=== PATIENT | female | born 1975 ===

== ENCOUNTER 2016-09-09 13:47 | Emergency (ER) | payer SELFPAY ==
--- NOTE | 2016-09-09 14:26 | Emergency Department Report ---
Chief Complaint: Vaginal Bleeding Stated Complaint: HEAVY BLEEDING Time Seen by Provider: 09/09/16 14:19 - HPI History of Present Illness: 40-year-old female presents today with vaginal bleeding 17 days. Positive for history of fibroids. Positive for nausea, vomiting and minimal abdominal pain. Denies vaginal discharge, urinary symptoms, fever, chills, chest pain, shortness of breath. - ROS Review of Systems: Per HPI - Exam Vital Signs: Vital Signs 09/09/16 14:10 Temperature 97.8 F Pulse Rate 98 H Respiratory 18 Rate Blood Pressure 127/77 O2 Sat by Pulse 97 Oximetry Physical Exam: General: 40-year-old female in no acute distress. Well-developed, well- nourished. CV: Regular rate and rhythm. Lungs: Clear to auscultation bilaterally. Abdomen: Minimal tenderness to palpation over her left lower quadrant. No guarding or rebound tenderness. Normal bowel sounds. MSE screening note: Focused history and physical exam performed. Due to findings the following was ordered: ED Disposition for MSE Condition: Stable
[2016-09-09 15:31] LABS: Anion Gap 18 mmol/L; BUN/Creatinine Ratio 15.71; Blood Urea Nitrogen 11 mg/dL (7-17); Calcium 8.9 mg/dL (8.4-10.2); Carbon Dioxide 25 mmol/L (22-30); Chloride 99.6 mmol/L (98-107); Glucose 100 mg/dL (65-100); Potassium 3.9 mmol/L (3.6-5.0); Sodium 139 mmol/L (137-145)
[2016-09-09 15:39] LABS: Basophils % (Auto) 0.5 % (0.0-1.8); Eosinophils % (Auto) 5.3 % (0.0-4.3); Hematocrit 34.8 % (30.3-42.9); Hemoglobin 11.1 gm/dl (10.1-14.3); Mean Corpuscular HGB Conc 32 % (30-34); Mean Corpuscular Volume 79 fl (79-97); Platelet Count 242 K/mm3 (140-440); Red Blood Count 4.43 M/mm3 (3.65-5.03); Red Cell Distribution Width 16.4 % (13.2-15.2); White Blood Count 7.4 K/mm3 (4.5-11.0)
[2016-09-09 15:40] LABS: Bilirubin,Urine NEG (Negative); Blood,Urine LG (Negative); Ketones,Urine NEG (Negative); Leukocyte Esterase,Urine NEG (Negative); Nitrite,Urine NEG (Negative); Protein,Urine <15 mg/dL mg/dL (Negative); WBC,Urine < 1.0 /HPF (0.0-6.0)
[2016-09-09 15:41] LABS: RBC,Urine > 182.0 /HPF (0.0-6.0)
[2016-09-09 15:48] LABS: INR 1.07 (0.87-1.13)
[2016-09-09 15:49] LABS: Partial Thromboplastin Time 25.8 Sec. (24.2-36.6)
[2016-09-09 15:51] LABS: Mean Corpuscular Hemoglobin 25 pg (28-32)
--- NOTE | 2016-09-10 01:48 | Emergency Department Report ---
[id number] HEAVY BLEEDING Time Seen by Provider: 09/09/16 14:19 Source: patient, RN notes reviewed Mode of arrival: Ambulatory Limitations: No Limitations - History of Present Illness Initial comments: This is a 40-year-old female, previously unknown to me. 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 She reports a history of depression, fibroids. She reports currently having a "[place] device." Patient presents to the ER complaining of vaginal bleeding since August 24. She reports using a few pads per day. She has not passed out. She also complains of crampy pelvic pain. She denies irritative and obstructive urinary symptoms. No chest pain or shortness of breath. No lethargy or irritability. Bleeding has been constant since July. It has no exacerbating or relieving factors. MD Complaint: vaginal bleeding, pelvic pain -: Gradual, week(s) Location: suprapubic Severity: mild Quality: cramping Consistency: intermittent Improves with: none Worsens with: none Are you Now?: No Associated Symptoms: vaginal bleeding, abdominal pain. denies: vaginal discharge, fever/chills, headaches, loss of appetite, dysuria, hematuria, shortness of breath, syncope, weakness - Related Data Sexually active: Yes Previous Rx's Medication Instructions Recorded Last Taken Type Ibuprofen [Motrin] 600 mg PO Q8H PRN #30 tablet 09/10/16 Unknown Rx Ondansetron [Zofran Odt] 4 mg PO QID PRN #20 tab.rapdis 09/10/16 Unknown Rx Allergies Allergy/AdvReac Type Severity Reaction Status Date / Time No Known Allergies Allergy Unverified 09/09/16 14:13 ED Review of Systems ROS: Stated complaint: HEAVY BLEEDING Other details as noted in HPI Constitutional: denies: fever Eyes: denies: vision change ENT: denies: epistaxis Respiratory: denies: cough Cardiovascular: denies: chest pain Gastrointestinal: as per HPI Genitourinary: abnormal menses Musculoskeletal: as per HPI Skin: as per HPI. denies: lesions Neurological: denies: headache ED Past Medical Hx - Past Medical History Hx Hypertension: Yes Hx Psychiatric Treatment: Yes (depression) Additional medical history: fibroids - Surgical History Additional Surgical History: ,tubal - Social History Smoking Status: Never Smoker Substance Use Type: None - Medications Home Medications: Home Medications Medication Instructions Recorded Confirmed Last Taken Type Ibuprofen [Motrin] 600 mg PO Q8H PRN #30 tablet 09/10/16 Unknown Rx Ondansetron [Zofran Odt] 4 mg PO QID PRN #20 tab.rapdis 09/10/16 Unknown Rx ED Physical Exam - General Limitations: No Limitations General appearance: alert, in no apparent distress - Head Head exam: Present: atraumatic, normocephalic - Eye Eye exam: Present: normal appearance, EOMI. Absent: nystagmus - ENT ENT exam: Present: normal exam, normal orophraynx, mucous membranes moist. Absent: normal external ear exam - Neck Neck exam: Present: normal inspection, full ROM. Absent: tenderness, meningismus - Respiratory Respiratory exam: Present: normal lung sounds bilaterally. Absent: respiratory distress, wheezes, rales, rhonchi, stridor, chest wall tenderness - Cardiovascular Cardiovascular Exam: Present: regular rate, normal rhythm, normal heart sounds. Absent: bradycardia, tachycardia, irregular rhythm, systolic murmur, diastolic murmur, rubs, gallop - GI/Abdominal GI/Abdominal exam: Present: soft, normal bowel sounds. Absent: distended, tenderness, guarding, rebound, rigid, pulsatile mass - External exam: Present: normal external exam Speculum exam: Present: vaginal bleeding Bi-manual exam: Present: normal bi-manual exam, other (escorted by Hilaria). Absent: cervical motion tendernes, adnexal tenderness (escorted by Hilaria Brambila during exam), adnexal mass - Extremities Exam Extremities exam: Present: normal inspection, full ROM, normal capillary refill. Absent: tenderness, pedal edema, joint swelling, calf tenderness - Back Exam Back exam: Present: normal inspection, full ROM. Absent: tenderness, CVA tenderness (R), CVA tenderness (L), muscle spasm, paraspinal tenderness, vertebral tenderness, rash noted - Neurological Exam Neurological exam: Present: alert, oriented X3, normal gait, other (Extraocular movements intact. Tongue midline. No facial droop. Facial sensation intact to light touch in the V1, V2, V3 distribution bilaterally. 5 and 5 strength in 4 extremities.. Sensation is intact to light touch in 4 extremities.). Absent : motor sensory deficit - Psychiatric Psychiatric exam: Present: anxious - Skin Skin exam: Present: warm, dry, intact, normal color. Absent: rash ED Course Vital Signs 09/09/16 09/10/16 09/10/16 14:10 02:01 02:08 Temperature 97.8 F 97.9 F Pulse Rate 98 H 83 Respiratory 18 20 20 Rate Blood Pressure 127/77 Blood Pressure 131/81 [Right] O2 Sat by Pulse 97 99 99 Oximetry - Reevaluation(s) Reevaluation #1: 09/10/16 01:58 Differential diagnosis: Dysfunctional uterine bleeding, fibroid bleeding, anemia , Assessment and plan: 40-year-old female with subacute vaginal bleeding. She is not , she is afebrile with reassuring vital signs, she is not anemic. Her gynecologic exam is unremarkable with the exception of bleeding. She has an outpatient sports broadcasting internship that she can follow-up with. Her belly is soft with no rebound or guarding. She is clinically well-appearing. I see no objective indication for advanced imaging at this time, especially given her benign abdominal examination and benign gynecologic examination. She is instructed as to the importance of close outpatient [employer] follow-up. Return precautions are reviewed. ED Medical Decision Making - Lab Data Result diagrams: 09/09/16 14:55 09/09/16 14:55 Vital Signs 09/09/16 14:10 Temperature 97.8 F Pulse Rate 98 H Respiratory 18 Rate Blood Pressure 127/77 O2 Sat by Pulse 97 Oximetry Lab Results 09/09/16 09/09/16 09/09/16 Range/Units 14:55 14:55 14:55 WBC 7.4 (4.5-11.0) K/mm3 RBC 4.43 (3.65-5.03) M/mm3 Hgb 11.1 (10.1-14.3) gm/dl Hct 34.8 (30.3-42.9) % MCV 79 (79-97) fl MCH 25 L (28-32) pg MCHC 32 (30-34) % RDW 16.4 H (13.2-15.2) % Plt Count 242 (140-440) K/mm3 Lymph % (Auto) 49.9 H (13.4-35.0) % [place] % (Auto) 9.2 H (0.0-7.3) % Eos % (Auto) 5.3 H (0.0-4.3) % Baso % (Auto) 0.5 (0.0-1.8) % Lymph # 3.7 (1.2-5.4) K/mm3 [place] # 0.7 (0.0-0.8) K/mm3 Eos # 0.4 (0.0-0.4) K/mm3 Baso # 0.0 (0.0-0.1) K/mm3 Seg Neutrophils % 35.1 L (40.0-70.0) % Seg Neutrophils # 2.6 (1.8-7.7) K/mm3 PT 13.8 (12.2-14.9) Sec. INR 1.07 (0.87-1.13) APTT 25.8 (24.2-36.6) Sec. Sodium 139 (137-145) mmol/L Potassium 3.9 (3.6-5.0) mmol/L Chloride 99.6 (98-107) mmol/L Carbon Dioxide 25 (22-30) mmol/L Anion Gap 18 mmol/L BUN 11 (7-17) mg/dL Creatinine 0.7 (0.7-1.2) mg/dL Estimated GFR > 60 ml/min BUN/Creatinine Ratio 15.71 % Glucose 100 (65-100) mg/dL Calcium 8.9 (8.4-10.2) mg/dL Urine Color (Yellow) Urine Turbidity (Clear) Urine pH (5.0-7.0) Ur Specific [place] (1.003-1.030) Urine Protein (Negative) mg/dL Urine Glucose (UA) (Negative) mg/dL Urine Ketones (Negative) mg/dL Urine Blood (Negative) Urine Nitrite (Negative) Urine Bilirubin (Negative) Urine Urobilinogen (<2.0) mg/dL Ur Leukocyte Esterase (Negative) Urine WBC (Auto) (0.0-6.0) /HPF Urine RBC (Auto) (0.0-6.0) /HPF U Epithel Cells (Auto) (0-13.0) /HPF Urine HCG, Qual (Negative) 09/09/16 Range/Units 15:12 WBC (4.5-11.0) K/mm3 RBC (3.65-5.03) M/mm3 Hgb (10.1-14.3) gm/dl Hct (30.3-42.9) % MCV (79-97) fl MCH (28-32) pg MCHC (30-34) % RDW (13.2-15.2) % Plt Count (140-440) K/mm3 Lymph % (Auto) (13.4-35.0) % [place] % (Auto) (0.0-7.3) % Eos % (Auto) (0.0-4.3) % Baso % (Auto) (0.0-1.8) % Lymph # (1.2-5.4) K/mm3 [place] # (0.0-0.8) K/mm3 Eos # (0.0-0.4) K/mm3 Baso # (0.0-0.1) K/mm3 Seg Neutrophils % (40.0-70.0) % Seg Neutrophils # (1.8-7.7) K/mm3 PT (12.2-14.9) Sec. INR (0.87-1.13) APTT (24.2-36.6) Sec. Sodium (137-145) mmol/L Potassium (3.6-5.0) mmol/L Chloride (98-107) mmol/L Carbon Dioxide (22-30) mmol/L Anion Gap mmol/L BUN (7-17) mg/dL Creatinine (0.7-1.2) mg/dL Estimated GFR ml/min BUN/Creatinine Ratio % Glucose (65-100) mg/dL Calcium (8.4-10.2) mg/dL Urine Color Yellow (Yellow) Urine Turbidity Clear (Clear) Urine pH 6.0 (5.0-7.0) Ur Specific [place] 1.019 (1.003-1.030) Urine Protein <15 mg/dl (Negative) mg/dL Urine Glucose (UA) Neg (Negative) mg/dL Urine Ketones Neg (Negative) mg/dL Urine Blood Lg (Negative) Urine Nitrite Neg (Negative) Urine Bilirubin Neg (Negative) Urine Urobilinogen 4.0 (<2.0) mg/dL Ur Leukocyte Esterase Neg (Negative) Urine WBC (Auto) < 1.0 (0.0-6.0) /HPF Urine RBC (Auto) > 182.0 (0.0-6.0) /HPF U Epithel Cells (Auto) 1.0 (0-13.0) /HPF Urine HCG, Qual Negative (Negative) Critical care attestation.: If time is entered above; I have spent that time in minutes in the direct care of this critically ill patient, excluding procedure time. ED Disposition Clinical Impression: Vaginal bleeding Disposition: DISCHARGED TO HOME OR SELFCARE Is pt being admited?: No Does the pt Need Aspirin: No Condition: Stable Instructions: Uterine Fibroids (ED) Additional Instructions: Take the medication as directed. Follow-up with a sports broadcasting internship within the next week to [address] Campuzano/Dr. Bellamy a local sports broadcasting internship specialist. Return to the ER right away with new pain, worsening pain, migration of pain, fevers or chills, intractable nausea or vomiting, inability to tolerate liquid feeds, dizziness, lightheadedness, passing out, bleeding more than 2 pads soaked per hour. Prescriptions: Ibuprofen [Motrin] 600 mg PO Q8H PRN #30 tablet PRN Reason: Pain Ondansetron [Zofran Odt] 4 mg PO QID PRN #20 tab.rapdis PRN Reason: Nausea Referrals: PRIMARY CARE,MD [Primary Care Provider] - 3-5 Days MYLENE CAMPUZANO MD [Staff Physician] - 3-5 Days KAREEN BELLAMY MD [Staff Physician] - 3-5 Days
[2016-09-10 02:01] VITALS: BP 131/81
== END 2016-09-10 02:30 | disposition home or self-care (01) ==
LOC: ED 13:47
DX: N93.9 Abnormal uterine and vaginal bleeding, unspecified (principal); R10.2 Pelvic and perineal pain; I10 Essential (primary) hypertension; Z98.890 Other specified postprocedural states; Z90.710 Acquired absence of both cervix and uterus
CPT/HCPCS: 36415; 80048; 81001; 81025; 85025; 85610; 85730; 87591; 99284